=== PATIENT | male | born 1990 | race Two or more races ===

== ENCOUNTER 2022-03-16 22:21 | Emergency (ER) | payer MEDICAID ==
[~2022-03-16] VITALS: Ht 180.3 cm; Wt 100.0 kg
[2022-03-17] MEDS ORDERED: MAG HYDROX/AL HYDROX/SIMETH ES 30 ML SUSPENSION UDCUP PO ONE
[2022-03-17] MEDS ORDERED: ACETAMINOPHEN 500 MG TABLET PO ONE
[2022-03-17] MEDS ORDERED: LIDOCAINE 2% VISCOUS 15 ML SOLUTION UDCUP PO ONE (00:45)
[2022-03-17 01:16] LABS: COVID AG,FIA SOURCE NASOPHARYNGEAL
[2022-03-17 02:15] VITALS: BP 171/92
[2022-03-17] MEDS ORDERED: IBUP-1554 PO (02:33)
[2022-03-17] MEDS ORDERED: ACET-66 PO (02:33)
[2022-03-17] MEDS ORDERED: MAG30ORA11 PO (02:33)
== END 2022-03-17 02:51 | disposition home or self-care (01) ==
LOC: EMS 22:24
DX: F41.9 Anxiety disorder, unspecified (principal); J06.9 Acute upper respiratory infection, unspecified; R59.1 Generalized enlarged lymph nodes; J45.909 Unspecified asthma, uncomplicated; K21.9 Gastro-esophageal reflux disease without esophagitis; Z20.822 Contact with and (suspected) exposure to COVID-19
CPT/HCPCS: 71045; 99284